=== PATIENT | male | born 1975 | race Two or more races ===

== ENCOUNTER 2025-04-27 03:51 | Inpatient (IN) | payer MEDICARE, MEDICAID ==
[~2025-04-27] VITALS: Ht 185.4 cm; Wt 81.2 kg
[2025-04-27] MEDS ORDERED: LORAZEPAM 2MG/ML UD SYRINGE IV NR (04:30)
[2025-04-27 04:48] LABS: BASOPHILS % 1.0 % (0.0-2.0); EOSINOPHILS % 2.1 % (0.0-5.0); HEMATOCRIT. 37.6 % (42.0-52.0); HEMOGLOBIN. 13.0 g/dL (14.0-18.0); LYMPHOCYTES % 37.4 % (20.0-50.0); MEAN PLATELET VOLUME 7.4 fl (7.4-10.4); MONOCYTES % 10.3 % (2.0-8.0); NEUTROPHILS % 49.2 % (40.0-76.0); PLATELET 256 x1000/uL (130-400); RED BLOOD CELL COUNT 4.12 mill/uL (4.7-6.1); RED CELL DISTRIBUTION WIDTH 17.8 % (11.6-14.6)
[2025-04-27 05:08] LABS: CREATININE 0.8 mg/dL (0.6-1.3); UREA NITROGEN BLOOD 8 mg/dL (9-23)
[2025-04-27 05:09] LABS: ETHANOL BLOOD < 10 mg/dL (<10); TROPONIN I HIGH SENSITIVITY 5 ng/L (3.0-53)
[2025-04-27] MEDS: LORAZEPAM 2MG/ML UD SYRINGE IV SCH (05:28)
[2025-04-27 05:51] LABS: INR 1.1
[2025-04-27 05:52] LABS: CREATININE 0.7 mg/dL (0.6-1.3); UREA NITROGEN BLOOD 7 mg/dL (9-23)
[2025-04-27 05:53] LABS: TROPONIN I HIGH SENSITIVITY 17 ng/L (3.0-53)
[2025-04-27 06:42] LABS: ASPARTATE AMINOTRANSFERASE 226 IU/L (<34); BILIRUBIN DIRECT 0.3 mg/dL (<=3.0); BILIRUBIN TOTAL 0.6 mg/dL (0.1-1.0); PROTEIN TOTAL 6.3 g/dL (6.0-8.3)
[2025-04-27 08:29] VITALS: BP 159/94; PULSE 80; RESP 18; TEMP 36.5; O2SAT 99
[2025-04-27 09:57] VITALS: BP 159/94; PULSE 80; RESP 18; TEMP 36.5
[2025-04-27] MEDS ORDERED: LORAZEPAM 2MG/ML UD SYRINGE IV PRN (10:00)
[2025-04-27] MEDS ORDERED: ONDANSETRON HCL 4MG/2ML INJ IV PRN (10:00)
[2025-04-27] MEDS ORDERED: ACETAMINOPHEN 325MG TABLET PO PRN (10:00)
[2025-04-27] MEDS: AMLODIPINE 10MG TABLET PO SCH (10:52)
[2025-04-27 12:00] VITALS: BP 147/90; PULSE 86; RESP 18; TEMP 36.6; O2SAT 100
[2025-04-27] MEDS ORDERED: LEVE500T19 PO (15:04)
[2025-04-27] MEDS ORDERED: MELO-106 PO (15:04)
[2025-04-27] MEDS ORDERED: PANT40TA51 PO (15:04)
[2025-04-27] MEDS ORDERED: AMLO5TAB88 PO (15:04)
[2025-04-27] MEDS ORDERED: OXYC-582 PO (15:04)
[2025-04-27] MEDS ORDERED: IPRA3AMP9 (15:04)
[2025-04-27] MEDS ORDERED: PHEN100C12 PO (15:04)
[2025-04-27] MEDS ORDERED: HYDR-2988 PO (15:04)
[2025-04-27 16:00] VITALS: BP 155/93; PULSE 102; RESP 18; TEMP 36.5; O2SAT 98
[2025-04-27 20:00] VITALS: BP 147/94; PULSE 83; RESP 19; TEMP 36.4; O2SAT 98
[2025-04-27] MEDS: IPRATROPIUM/ALBUTEROL 0.5-3(2.5)MG/3ML NEB HHN SCH (20:57)
[2025-04-27] MEDS ORDERED: LEVETIRACETAM 500MG in NACL 100ML PREMIX IV SCH (21:00)
[2025-04-27 21:04] VITALS: PULSE 78; RESP 18; O2SAT 97
[2025-04-27] MEDS: PHENYTOIN SODIUM EXTENDED 100MG CAPSULE PO SCH (21:29)
[2025-04-27] MEDS: LEVETIRACETAM 500MG PREMIX 100ML IV SCH (21:29)
[2025-04-28] VITALS: BP 144/81; PULSE 80; RESP 20; TEMP 36.9; O2SAT 95
[2025-04-28 00:57] VITALS: PULSE 80; RESP 20; O2SAT 99
[2025-04-28 04:00] VITALS: BP 132/80; PULSE 78; RESP 20; TEMP 36.7; O2SAT 98
[2025-04-28 08:00] VITALS: BP 137/85; PULSE 74; RESP 20; TEMP 36; O2SAT 100
[2025-04-28 12:00] VITALS: BP 120/80; PULSE 87; RESP 18; TEMP 36.7; O2SAT 95
[2025-04-28 16:00] VITALS: BP 131/82; PULSE 78; RESP 20; TEMP 36.6; O2SAT 100
[2025-04-28 16:36] LABS: CLARITY URINE CLEAR (CLEAR); COLOR URINE DARK YELLOW (YELLOW); GLUCOSE URINE NEGATIVE (NEGATIVE); KETONES URINE TRACE (NEGATIVE); LEUKOCYTE ESTERASE URINE NEGATIVE (NEGATIVE); NITRITE URINE NEGATIVE (NEGATIVE); OCCULT BLOOD URINE NEGATIVE (NEGATIVE); PH URINE 7.0 (4.5-8.0); PROTEIN URINE NEGATIVE (NEGATIVE); SPECIFIC GRAVITY URINE 1.021 (1.005-1.030); UROBILINOGEN URINE 1.0 E.U./dL (0.2-1.0)
[2025-04-28 16:44] LABS: *AMPHETAMINES SCREEN URINE NEGATIVE (NEGATIVE); *BARBITURATES SCREEN URINE NEGATIVE (NEGATIVE); *BENZODIAZEPINES SCREEN URINE NEGATIVE (NEGATIVE); *COCAINE SCREEN URINE NEGATIVE (NEGATIVE); CANNABINOID URINE SCREEN PRESUMPTIVE POSITIVE (NEGATIVE); ECSTASY MDMA SCREEN URINE NEGATIVE (NEGATIVE); METHADONE URINE SCREEN NEGATIVE (NEGATIVE); OPIATES URINE SCREEN NEGATIVE (NEGATIVE); PHENCYCLIDINE URINE SCREEN NEGATIVE (NEGATIVE)
== END 2025-04-28 18:57 | disposition left against medical advice (07) | DRG 101 ==
LOC: ER 03:51 → EDBEDREQ 06:34 → EDBEDREQTM 06:34 → EDBEDREQSVC 06:34 → ENRESERV 07:11 → 8WST 07:40
PROVIDERS: ADMIT Internal Medicine; ATTEND Internal Medicine
DX: G40.909 Epilepsy, unspecified, not intractable, without status epilepticus (principal); G81.91 Hemiplegia, unspecified affecting right dominant side; E87.6 Hypokalemia; I10 Essential (primary) hypertension; Z53.29 Procedure and treatment not carried out because of patient's decision for other reasons; Z79.899 Other long term (current) drug therapy; Z91.199 Patient's noncompliance with other medical treatment and regimen due to unspecified reason
CPT/HCPCS: 36415; 71045; 80048; 80076; 80185; 80305; 80320; 81003; 84484; 85025; 94070; 94640; 94664; 99285; J1953; J2060; G0480